=== PATIENT | female | born 1955 | race Caucasian/White ===

== ENCOUNTER 2018-12-22 22:46 | Emergency (ER) | payer BC, MEDICARE, OTHER ==
[~2018-12-22] VITALS: Ht 160 cm; Wt 63.6 kg
[2018-12-22 22:54] VITALS: BP 154/80
== END 2018-12-23 01:01 | disposition home or self-care (01) ==
LOC: ER 22:46
DX: B35.1 Tinea unguium (principal); R22.0 Localized swelling, mass and lump, head; R22.1 Localized swelling, mass and lump, neck; F41.9 Anxiety disorder, unspecified; F32.9 Major depressive disorder, single episode, unspecified; Z98.890 Other specified postprocedural states
CPT/HCPCS: 93005; 99283

== ENCOUNTER 2019-01-02 19:37 | Emergency (ER) | payer MEDICARE, OTHER ==
--- NOTE | 2019-01-02 20:16 | NUR ---
LEFT BEFORE TRIAGE PER REGISTRATION
== END 2019-01-02 20:46 | disposition left against medical advice (07) ==
LOC: ER 19:37
DX: H57.89 Other specified disorders of eye and adnexa (principal); Z53.21 Procedure and treatment not carried out due to patient leaving prior to being seen by health care provider

== ENCOUNTER 2019-02-12 18:10 | Emergency (ER) | payer MEDICARE ==
[~2019-02-12] VITALS: Ht 160 cm; Wt 68.2 kg
[2019-02-12 18:29] VITALS: BP 148/89
--- NOTE | 2019-02-12 18:50 | NUR ---
PT EXAMINED BY DR. MUNGUIA , HE REPORTS SHE IS HAVING METHAMPHETAMINE INDUCED SUSPICION OF BUGS HER PRESENTATION IS CLASSIC WITH REPROTING OF "BUGS EVERYWHERE" IN HER HOUSE ON HER BODY. I VERIFIED [facility] IN FROBNT OF PT THAT I DID NOT SEE ANY BUGS,, NOTED NOT LICE OR BEDBUGS. PT APPEARS FRUSTRATED THAT MD NOT GOING TO SAMPLE HER SCABS. PT UPDATED THAT SHE IS WELCOME TO GET SOMETHING OTC FOR HER COMFORT IF ITCHING OR FOR THE SCABS AND ENCOURAGED BY TO STOP USING METH.
== END 2019-02-12 19:10 | disposition home or self-care (01) ==
LOC: ER 18:11
DX: F15.90 Other stimulant use, unspecified, uncomplicated (principal); R45.1 Restlessness and agitation; F41.9 Anxiety disorder, unspecified; F32.9 Major depressive disorder, single episode, unspecified
CPT/HCPCS: 99281

== ENCOUNTER 2019-03-18 15:16 | Emergency (ER) | payer MEDICARE ==
[~2019-03-18] VITALS: Ht 160 cm; Wt 68.0 kg
[2019-03-18 15:33] VITALS: BP 168/87
--- NOTE | 2019-03-18 15:49 | NUR ---
Pt insists there are bugs on her and that we think there is nothing wrong with her. No bugs or signs of mites are visible for the patient. Pt does not have any signs of a rash.
--- NOTE | 2019-03-18 16:12 | NUR ---
Pt refusing to leave. Requesting to see different provider. Security called for stnadby and discharge planner made aware.
== END 2019-03-18 16:20 | disposition home or self-care (01) ==
LOC: ER 15:16
DX: Z00.00 Encounter for general adult medical examination without abnormal findings (principal); F41.9 Anxiety disorder, unspecified; F32.9 Major depressive disorder, single episode, unspecified; F15.10 Other stimulant abuse, uncomplicated; Z98.890 Other specified postprocedural states
CPT/HCPCS: 99281

== ENCOUNTER 2019-04-07 23:43 | Emergency (ER) | payer MEDICARE ==
[~2019-04-07] VITALS: Ht 160 cm; Wt 64.0 kg
[2019-04-07 23:45] VITALS: BP 167/88
== END 2019-04-07 23:55 | disposition home or self-care (01) ==
LOC: ER 23:44
DX: R06.00 Dyspnea, unspecified (principal); F32.9 Major depressive disorder, single episode, unspecified; F41.9 Anxiety disorder, unspecified
CPT/HCPCS: 99281

== ENCOUNTER 2019-12-25 15:37 | Emergency (ER) | payer MEDICARE ==
[~2019-12-25] VITALS: Ht 160 cm; Wt 72.0 kg
[2019-12-25 16:02] VITALS: BP 184/108
[2019-12-25] MEDS ORDERED: CEPH250T PO (17:02)
[2019-12-25] MEDS ORDERED: HYDR20OI TOP (17:48)
== END 2019-12-25 17:51 | disposition home or self-care (01) ==
LOC: ER 15:38
DX: L98.9 Disorder of the skin and subcutaneous tissue, unspecified (principal); R23.4 Changes in skin texture; F41.9 Anxiety disorder, unspecified; F32.9 Major depressive disorder, single episode, unspecified; Z98.890 Other specified postprocedural states; Z79.899 Other long term (current) drug therapy
CPT/HCPCS: 99283

== ENCOUNTER 2020-02-03 23:33 | Emergency (ER) | payer MEDICARE ==
[~2020-02-03] VITALS: Ht 162.6 cm; Wt 65.0 kg
[~2020-02-03 23:33] MED LIST: HYDR20OI TOP
[2020-02-03 23:49] VITALS: BP 188/98
[2020-02-04] MEDS ORDERED: PRED10TA PO (00:09)
== END 2020-02-04 00:29 | disposition home or self-care (01) ==
LOC: ER 23:33
DX: L30.9 Dermatitis, unspecified (principal); F41.9 Anxiety disorder, unspecified; F32.9 Major depressive disorder, single episode, unspecified; Z98.890 Other specified postprocedural states; Z72.89 Other problems related to lifestyle; Z79.899 Other long term (current) drug therapy
CPT/HCPCS: 99283

== ENCOUNTER 2020-02-27 15:41 | Emergency (ER) | payer MEDICARE ==
[~2020-02-27] VITALS: Ht 162.6 cm; Wt 65.9 kg
[~2020-02-27 15:41] MED LIST changes: +PRED10TA PO
[2020-02-27 15:54] VITALS: BP 156/77
== END 2020-02-27 17:14 | disposition home or self-care (01) ==
LOC: ER 15:43
DX: U07.1 COVID-19 (principal); R23.4 Changes in skin texture; F29 Unspecified psychosis not due to a substance or known physiological condition; F41.9 Anxiety disorder, unspecified; F32.9 Major depressive disorder, single episode, unspecified; Z98.890 Other specified postprocedural states; Z72.89 Other problems related to lifestyle; Z79.899 Other long term (current) drug therapy
CPT/HCPCS: 99281

== ENCOUNTER 2020-06-19 02:25 | Emergency (ER) | payer MEDICARE ==
[~2020-06-19] VITALS: Ht 162.6 cm; Wt 68.2 kg
[2020-06-19 02:48] VITALS: BP 162/86
[2020-06-19 04:31] LABS: URINE AMPHETAMINE SCREEN POSITIVE (Neg); URINE BARBITUATE SCREEN NEGATIVE (Neg); URINE BENZODIAZEPINES SCREEN NEGATIVE (Neg); URINE CANNABINOID SCREEN NEGATIVE (Neg); URINE COCAINE SCREEN NEGATIVE (Neg); URINE METHADONE SCREEN NEGATIVE (Neg); URINE OPIATE SCREEN NEGATIVE (Neg); URINE PHENCYCLIDINE SCREEN NEGATIVE (Neg)
== END 2020-06-19 05:57 | disposition home or self-care (01) ==
LOC: ER 02:25
DX: F15.10 Other stimulant abuse, uncomplicated (principal); F41.9 Anxiety disorder, unspecified; F32.9 Major depressive disorder, single episode, unspecified; Z72.89 Other problems related to lifestyle; Z79.899 Other long term (current) drug therapy
CPT/HCPCS: 80305; 99283

== ENCOUNTER 2020-08-10 22:23 | Emergency (ER) | payer MEDICARE ==
[~2020-08-10] VITALS: Ht 162.6 cm; Wt 65.9 kg
[2020-08-10 22:28] VITALS: BP 156/86
== END 2020-08-10 23:40 | disposition home or self-care (01) ==
LOC: ER 22:24
DX: H00.014 Hordeolum externum left upper eyelid (principal); H57.12 Ocular pain, left eye; F41.9 Anxiety disorder, unspecified; F32.9 Major depressive disorder, single episode, unspecified; Z98.890 Other specified postprocedural states; Z72.89 Other problems related to lifestyle; Z79.899 Other long term (current) drug therapy
CPT/HCPCS: 99281

== ENCOUNTER 2020-09-17 19:07 | Emergency (ER) | payer MEDICARE ==
[~2020-09-17] VITALS: Ht 162.6 cm; Wt 63.0 kg
[2020-09-17 19:16] VITALS: BP 156/80
== END 2020-09-17 21:14 | disposition left against medical advice (07) ==
LOC: ER 19:09
DX: R44.1 Visual hallucinations (principal); Z53.21 Procedure and treatment not carried out due to patient leaving prior to being seen by health care provider

== ENCOUNTER 2020-09-20 23:17 | Emergency (ER) | payer MEDICARE ==
[~2020-09-20] VITALS: Ht 162.6 cm; Wt 61.0 kg
[2020-09-20 23:22] VITALS: BP 167/96
[2020-09-21] MEDS ORDERED: bacitracin 15gm ointment TP ONE (01:50)
[2020-09-21] MEDS ORDERED: SULF1TAB49 PO (01:50)
--- NOTE | 2020-09-21 02:03 | NUR ---
Note jacqueline in ED - 09/21/20 at 0206 by NIKO IV NaCl est @ 100 ml hr to SL, 20 ga L posterior hand. Patient is well oriented and cooperative. This group underwriter is covering for primary RN on lunch break.
== END 2020-09-21 02:20 | disposition home or self-care (01) ==
LOC: ER 23:18
DX: L98.9 Disorder of the skin and subcutaneous tissue, unspecified (principal); B88.8 Other specified infestations; Z72.89 Other problems related to lifestyle; Z79.899 Other long term (current) drug therapy
CPT/HCPCS: 99283

== ENCOUNTER 2020-12-12 20:01 | Emergency (ER) | payer MEDICARE ==
[~2020-12-12] VITALS: Ht 162.6 cm; Wt 63.6 kg
[2020-12-12 20:23] VITALS: BP 165/82
[2020-12-12] MEDS ORDERED: acetaminophen 325mg tablet PO ONE (23:10)
[2020-12-12] MEDS ORDERED: proCHLORperazine 10mg tablet PO ONE (23:10)
[2020-12-12] MEDS ORDERED: SUMAtriptan succ. 6 MG/0.5ml vial SQ ONE (23:10)
[2020-12-13] MEDS ORDERED: SUMA50TA PO (00:54)
== END 2020-12-13 01:27 | disposition home or self-care (01) ==
LOC: ER 20:02
DX: G43.909 Migraine, unspecified, not intractable, without status migrainosus (principal); Z79.899 Other long term (current) drug therapy; Z72.89 Other problems related to lifestyle
CPT/HCPCS: 70450; 96372; 99284; J3030; Q0164

== ENCOUNTER 2020-12-28 08:02 | Emergency (ER) | payer MEDICARE ==
[~2020-12-28] VITALS: Ht 162.6 cm; Wt 47.7 kg
[~2020-12-28 08:02] MED LIST changes: +SUMA50TA PO
[2020-12-28 08:35] VITALS: BP 178/98
== END 2020-12-28 08:40 | disposition home or self-care (01) ==
LOC: ER 08:03
DX: S09.90XA Unspecified injury of head, initial encounter (principal); S50.312A Abrasion of left elbow, initial encounter; S10.91XA Abrasion of unspecified part of neck, initial encounter; F41.9 Anxiety disorder, unspecified; F32.9 Major depressive disorder, single episode, unspecified; Z98.890 Other specified postprocedural states; Z72.89 Other problems related to lifestyle; Z79.899 Other long term (current) drug therapy; Y08.89XA Assault by other specified means, initial encounter; Y93.89 Activity, other specified; Y92.89 Other specified places as the place of occurrence of the external cause; Y99.8 Other external cause status
CPT/HCPCS: 99281

== ENCOUNTER 2021-04-23 19:27 | Emergency (ER) | payer MEDICARE ==
[~2021-04-23] VITALS: Ht 160 cm; Wt 68.1 kg
[~2021-04-23 19:27] MED LIST changes: -SUMA50TA PO
[2021-04-23 19:32] VITALS: BP 171/59
== END 2021-04-23 22:42 | disposition home or self-care (01) ==
LOC: ER 19:28
DX: L29.9 Pruritus, unspecified (principal); F41.9 Anxiety disorder, unspecified; F32.9 Major depressive disorder, single episode, unspecified; Z72.89 Other problems related to lifestyle; Z98.890 Other specified postprocedural states; Z79.899 Other long term (current) drug therapy
CPT/HCPCS: 99281; 99282

== ENCOUNTER 2021-07-24 22:15 | Emergency (ER) | payer MEDICARE ==
[~2021-07-24] VITALS: Ht 162.6 cm; Wt 75.0 kg
[2021-07-24 22:25] VITALS: BP 164/83
== END 2021-07-25 01:16 | disposition left against medical advice (07) ==
LOC: ER 22:16
DX: R50.9 Fever, unspecified (principal); Z53.21 Procedure and treatment not carried out due to patient leaving prior to being seen by health care provider

== ENCOUNTER 2021-07-27 20:12 | Emergency (ER) | payer MEDICARE ==
[~2021-07-27] VITALS: Ht 162.6 cm; Wt 67.0 kg
[2021-07-27 20:36] VITALS: BP 154/67
== END 2021-07-27 22:34 | disposition home or self-care (01) ==
LOC: ER 20:13
DX: Z02.89 Encounter for other administrative examinations (principal); B88.9 Infestation, unspecified; F41.9 Anxiety disorder, unspecified; F32.A Depression, unspecified; Z98.890 Other specified postprocedural states; Z72.89 Other problems related to lifestyle; Z79.899 Other long term (current) drug therapy
CPT/HCPCS: 99281

== ENCOUNTER 2021-07-30 01:43 | Emergency (ER) | payer MEDICARE ==
[~2021-07-30] VITALS: Ht 162.6 cm; Wt 65.8 kg
[2021-07-30 03:47] VITALS: BP 167/102
== END 2021-07-30 03:49 | disposition home or self-care (01) ==
LOC: ER 01:43
DX: H57.11 Ocular pain, right eye (principal); R51.9 Headache, unspecified; R45.1 Restlessness and agitation; F15.10 Other stimulant abuse, uncomplicated; Z72.89 Other problems related to lifestyle; Z79.899 Other long term (current) drug therapy
CPT/HCPCS: 99283

== ENCOUNTER 2021-09-02 02:15 | Emergency (ER) | payer MEDICARE ==
[~2021-09-02] VITALS: Ht 162.6 cm; Wt 63.6 kg
[2021-09-02 02:25] VITALS: BP 167/84
== END 2021-09-02 03:39 | disposition home or self-care (01) ==
LOC: ER 02:16
DX: Z00.00 Encounter for general adult medical examination without abnormal findings (principal); R23.4 Changes in skin texture
CPT/HCPCS: 99281

== ENCOUNTER 2021-09-06 01:26 | Emergency (ER) | payer MEDICARE, OTHER ==
[~2021-09-06] VITALS: Ht 162.6 cm; Wt 65.9 kg
[2021-09-06 02:00] VITALS: BP 171/76
== END 2021-09-06 08:59 | disposition left against medical advice (07) ==
LOC: ER 01:27
DX: M79.645 Pain in left finger(s) (principal); Z53.21 Procedure and treatment not carried out due to patient leaving prior to being seen by health care provider

== ENCOUNTER 2021-10-17 22:38 | Emergency (ER) | payer OTHER ==
[~2021-10-17] VITALS: Ht 162.6 cm; Wt 62.4 kg
[2021-10-17 23:02] VITALS: BP 163/92
== END 2021-10-18 00:01 | disposition home or self-care (01) ==
LOC: ER 22:39
DX: B82.9 Intestinal parasitism, unspecified (principal); F41.9 Anxiety disorder, unspecified; F20.9 Schizophrenia, unspecified; Z79.899 Other long term (current) drug therapy
CPT/HCPCS: 99281

== ENCOUNTER 2022-01-20 01:52 | Emergency (ER) | payer OTHER ==
[~2022-01-20] VITALS: Ht 162.6 cm; Wt 145.0 kg
[2022-01-20 02:33] VITALS: BP 110/61
== END 2022-01-20 02:35 | disposition home or self-care (01) ==
LOC: ER 01:53
DX: R21 Rash and other nonspecific skin eruption (principal)
CPT/HCPCS: 99281

== ENCOUNTER 2022-03-06 10:21 | Emergency (ER) | payer OTHER ==
[~2022-03-06] VITALS: Ht 162.6 cm; Wt 65.0 kg
[2022-03-06 11:11] VITALS: BP 167/103
[2022-03-06] MEDS ORDERED: HYDR-3686 PO (12:52)
== END 2022-03-06 13:01 | disposition home or self-care (01) ==
LOC: ER 10:22
DX: B89 Unspecified parasitic disease (principal); F15.20 Other stimulant dependence, uncomplicated
CPT/HCPCS: 99283

== ENCOUNTER 2022-10-05 17:01 | Emergency (ER) | payer OTHER ==
[~2022-10-05] VITALS: Ht 162.6 cm; Wt 65.9 kg
[2022-10-05 17:04] VITALS: BP 153/107
[2022-10-05] MEDS ORDERED: PERM60CR19 TP (18:22)
== END 2022-10-05 18:26 | disposition home or self-care (01) ==
LOC: ER 17:01
DX: B86 Scabies (principal); F20.9 Schizophrenia, unspecified; F31.9 Bipolar disorder, unspecified; Z79.899 Other long term (current) drug therapy
CPT/HCPCS: 99283

== ENCOUNTER 2024-04-15 23:28 | Emergency (ER) | payer OTHER ==
[~2024-04-15] VITALS: Ht 160 cm; Wt 63.2 kg
[2024-04-15 23:35] VITALS: BP 188/90; PULSE 100; O2SAT 98
[2024-04-15 23:55] VITALS: RESP 14
[2024-04-16 00:40] VITALS: TEMP 98.4
== END 2024-04-16 00:41 | disposition home or self-care (01) ==
LOC: ER 23:28
DX: F41.9 Anxiety disorder, unspecified (principal); F32.A Depression, unspecified; F20.9 Schizophrenia, unspecified; Z98.890 Other specified postprocedural states
CPT/HCPCS: 71045; 99283

== ENCOUNTER 2024-06-17 12:19 | Emergency (ER) | payer MEDICARE ==
[~2024-06-17] VITALS: Ht 167.6 cm; Wt 61.4 kg
[2024-06-17 12:26] VITALS: BP 145/82; PULSE 68; RESP 16; TEMP 97.9; O2SAT 98
[2024-06-18] MEDS ORDERED: ALBE200T10 (01:50)
[2024-06-18] MEDS ORDERED: PERM60CR4 TOP (01:50)
== END 2024-06-17 15:02 | disposition left against medical advice (07) ==
LOC: ER 12:20
DX: T14.8XXA Other injury of unspecified body region, initial encounter (principal); W57.XXXA Bitten or stung by nonvenomous insect and other nonvenomous arthropods, initial encounter; Y93.89 Activity, other specified; Y92.89 Other specified places as the place of occurrence of the external cause; Y99.8 Other external cause status; Z53.21 Procedure and treatment not carried out due to patient leaving prior to being seen by health care provider

== ENCOUNTER 2024-06-18 00:57 | Emergency (ER) | payer MEDICARE ==
[~2024-06-18] VITALS: Ht 160 cm; Wt 60.0 kg
[2024-06-18] MEDS ORDERED: ALBE200T10 (01:50)
[2024-06-18] MEDS ORDERED: PERM60CR4 TOP (01:50)
[2024-06-18 02:03] VITALS: BP 161/80; PULSE 75; RESP 14; TEMP 98; O2SAT 98
== END 2024-06-18 02:04 | disposition home or self-care (01) ==
LOC: ER 00:57
DX: B86 Scabies (principal); B82.9 Intestinal parasitism, unspecified; F20.9 Schizophrenia, unspecified; F41.9 Anxiety disorder, unspecified; F32.A Depression, unspecified
CPT/HCPCS: 99283

== ENCOUNTER 2024-06-24 11:40 | Emergency (ER) | payer MEDICARE ==
[~2024-06-24] VITALS: Ht 162.6 cm; Wt 72.7 kg
[~2024-06-24 11:40] MED LIST changes: +ALBE200T10; +PERM60CR4 TOP
[2024-06-24 11:43] VITALS: BP 190/91; PULSE 72; RESP 18; TEMP 97.8; O2SAT 99
== END 2024-06-24 16:43 | disposition left against medical advice (07) ==
LOC: ER 11:41
DX: R06.02 Shortness of breath (principal); Z53.21 Procedure and treatment not carried out due to patient leaving prior to being seen by health care provider